=== PATIENT | male | born 1940 | race African-American/Black ===

== ENCOUNTER 2017-09-04 21:32 | Inpatient (IN) | payer MEDICARE, OTHER ==
[~2017-09-04] VITALS: Ht 177.8 cm; Wt 96.4 kg
[~2017-09-04 21:32] MED LIST: ASPI81TA82 PO; CARB6.5S5 EACH EAR; OMEGCAP21 PO; THIA100T PO; WALKER ROLLING; WALKER STANDARD
[2017-09-04 21:44] VITALS: BP 145/87; PULSE 99; RESP 16; TEMP 99.2; O2SAT 100
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
[2017-09-04] MEDS ORDERED: ONDANSETRON HCL 4 MG/2 ML VIAL IV PUSH ONE (22:00)
[2017-09-04] MEDS ORDERED: MORPHINE SULFATE 2 MG/ML INJ IV PUSH ONE (22:00)
[2017-09-04 22:05] LABS: AUTOMATED NEUTROPHIL # 5.9 TH/MM3 (1.8-7.7); BASOPHIL % 0.3 % (0.0-2.0); EOSINOPHIL % 0.2 % (0.0-4.0); HEMATOCRIT 38.3 % (39.0-51.0); HEMOGLOBIN 12.5 GM/DL (13.0-17.0); LYMPH % 8.3 % (9.0-44.0); LYMPHOCYTE # 0.6 TH/MM3 (1.0-4.8); MEAN CELL VOLUME 82.2 FL (80.0-100.0); MEAN CORPUSCULAR HEMOGLOBIN 26.9 PG (27.0-34.0); MEAN CORPUSCULAR HGB CONC 32.7 % (32.0-36.0); MEAN PLATELET VOLUME 8.3 FL (7.0-11.0); MONO % 8.8 % (0.0-8.0); MONOCYTE # 0.6 TH/MM3 (0-0.9); NEUT % 82.4 % (16.0-70.0); PLATELET COUNT 117 TH/MM3 (150-450); RED BLOOD COUNT 4.66 MIL/MM3 (4.50-5.90); RED CELL DISTRIBUTION WIDTH 14.8 % (11.6-17.2); WHITE BLOOD COUNT 7.2 TH/MM3 (4.0-11.0)
--- NOTE | 2017-09-04 22:08 | RADRPT ---
EXAM DATE/TIME: 09/04/2017 21:51 [facility] COMPARISON: No previous studies available for comparison. INDICATIONS : Evaluate chest for trauma, fell MEDICAL HISTORY : None. SURGICAL HISTORY : None. ENCOUNTER: Initial ACUITY: 1 day PAIN SCORE: 0/10 LOCATION: chest FINDINGS: A single view of the chest demonstrates the lungs to be symmetrically aerated without evidence of mas s, infiltrate or effusion. The cardiomediastinal contours are unremarkable. Osseous structures are intact. CONCLUSION: No acute disease. Huy Morales MD on September 04, 2017 at 22:06 Board Certified Radiologist. This report was verified electronically.
--- NOTE | 2017-09-04 22:11 | RADRPT ---
EXAM DATE/TIME: 09/04/2017 21:55 [facility] COMPARISON: No previous studies available for comparison. INDICATIONS : Left hip pain, fell MEDICAL HISTORY : None. SURGICAL HISTORY : None. ENCOUNTER: Initial ACUITY: 1 day PAIN SCORE: 9/10 LOCATION: Left Hip FINDINGS: Examination of the left hip was performed with AP Pelvis. A nondisplaced fracture is identified along the left intertrochanteric ridge. The femoral head remains well-seated within the acetabulum. There is mild degenerative spurring along the acetabular rim. CONCLUSION: Nondisplaced intertrochanteric fracture of the left hip. Huy Morales MD on September 04, 2017 at 22:08 Board Certified Radiologist. This report was verified electronically.
[2017-09-04 22:17] LABS: INTERNATIONAL NORMALIZED RATIO 1.1 RATIO; PROTHROMBIN TIME - PATIENT 10.7 SEC (9.8-11.6)
[2017-09-04 22:18] LABS: ALBUMIN 3.4 GM/DL (3.4-5.0); AST (GOT) 28 U/L (15-37); BICARBONATE 29.2 MEQ/L (21.0-32.0); BLOOD UREA NITROGEN 19 MG/DL (7-18); CALCIUM 8.6 MG/DL (8.5-10.1); CHLORIDE 98 MEQ/L (98-107); CREATININE 1.24 MG/DL (0.60-1.30); GLOMERULAR FILTRATION RATE 68 ML/MIN (>89); GLUCOSE,RANDOM 142 MG/DL (74-106); LIPASE 124 U/L (73-393); SODIUM (NA) 132 MEQ/L (136-145)
[2017-09-04 22:19] LABS: ALT (GPT) 12 U/L (12-78)
[2017-09-04 22:22] LABS: ALKALINE PHOSPHATASE 76 U/L (45-117); TOTAL BILIRUBIN ADULT 0.3 MG/DL (0.2-1.0); TOTAL PROTEIN 7.7 GM/DL (6.4-8.2); TROPONIN I LESS THAN 0.02 NG/ML (0.02-0.05)
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
[2017-09-04] MEDS: SODIUM CHLOR 0.9% 1000 ML INJ 1,000 ML IV SCH (22:27)
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
[2017-09-04 23:22] VITALS: O2SAT 100
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
[2017-09-04 23:58] LABS: BILIRUBIN, URINE NEG (NEG); BLOOD, URINE SMALL (NEG); GLUCOSE,URINE NEG (NEG); KETONE, URINE NEG (NEG); MUCUS URINE FEW /lpf (OCC); NITRITE,URINE NEG (NEG); URINE COLOR YELLOW (YELLW/STRAW); URINE LEUKOCYTE ESTERASE NEG (NEG)
[2017-09-05] VITALS (14 sets, daily range): BP systolic 100–160; BP diastolic 54–118; PULSE 77–124; RESP 16–20; TEMP 96.2–101.1; O2SAT 94–100
[2017-09-05] MEDS ORDERED: diphenhydrAMINE HCL 25 MG CAP PO PRN (00:45)
[2017-09-05] MEDS ORDERED: SODIUM CHLORIDE 0.9% FLUSH 10 ML FLUSH IV FLUSH PRN (00:45)
[2017-09-05] MEDS ORDERED: ONDANSETRON HCL 4 MG/2 ML VIAL IV PUSH PRN (00:45)
[2017-09-05] MEDS ORDERED: ACETAMINOPHEN 1000 MG/100 ML 65 ML IV PRN (00:45)
[2017-09-05] MEDS: MORPHINE SULFATE 2 MG/ML INJ IV PUSH PRN ×3 (02:11→16:20)
[2017-09-05 07:26] LABS: AUTOMATED NEUTROPHIL # 4.4 TH/MM3 (1.8-7.7); BASOPHIL % 0.4 % (0.0-2.0); EOSINOPHIL % 0.1 % (0.0-4.0); HEMATOCRIT 35.3 % (39.0-51.0); HEMOGLOBIN 11.6 GM/DL (13.0-17.0); LYMPH % 9.7 % (9.0-44.0); LYMPHOCYTE # 0.5 TH/MM3 (1.0-4.8); MEAN CELL VOLUME 81.8 FL (80.0-100.0); MEAN CORPUSCULAR HEMOGLOBIN 26.9 PG (27.0-34.0); MEAN CORPUSCULAR HGB CONC 32.9 % (32.0-36.0); MEAN PLATELET VOLUME 8.8 FL (7.0-11.0); MONO % 9.8 % (0.0-8.0); MONOCYTE # 0.5 TH/MM3 (0-0.9); PLATELET COUNT 107 TH/MM3 (150-450); RED BLOOD COUNT 4.32 MIL/MM3 (4.50-5.90); RED CELL DISTRIBUTION WIDTH 14.5 % (11.6-17.2); WHITE BLOOD COUNT 5.5 TH/MM3 (4.0-11.0)
[2017-09-05 07:48] LABS: BICARBONATE 29.6 MEQ/L (21.0-32.0); CALCIUM 8.4 MG/DL (8.5-10.1); CREATININE 1.03 MG/DL (0.60-1.30)
[2017-09-05] MEDS: SODIUM CHLORIDE 0.9% FLUSH 10 ML FLUSH IV FLUSH SCH ×2 (07:55→21:39)
[2017-09-05] MEDS ORDERED: ceFAZolin INJ 1,000 MG VIAL ONE (08:46)
[2017-09-05] MEDS ORDERED: VANCOMYCIN HCL 1000 MG VIAL ONE (08:46)
[2017-09-05] MEDS ORDERED: GENTAMICIN SULFATE 80 MG/2 ML VIAL ONE (08:46)
[2017-09-05] MEDS ORDERED: BUPIVACAINE/EPINEPHRINE 0.25% PF 10 ML VIAL ONE (08:46)
[2017-09-05] MEDS ORDERED: SODIUM CHLOR 0.9% 250 ML INJ 250 ML ONE (08:47)
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
--- NOTE | 2017-09-05 09:40 | PD.OP ---
cc: Joseph Lawson MD Operative Report Date of Surgery: Sep 05, 2017 Preoperative Diagnosis: Left hip intertrochanteric fracture Postoperative Diagnosis: Procedure: Left hip reduction and intramedullary nail fixation Anesthesia: Gen. Surgeon: Joseph Lawson Show Host Or Hostess(s): AUBRIE Ruvalcaba PA-C The surgical procedure was assisted by my physician assistant plant control operator. My P.A. presence was necessary throughout this case for the manipulation and positioning of the surgical extremity. My P.A. was assisting me throughout the duration of this procedure. The skill set of a physician assistant plant control operator was medically necessary to complete this procedure. During the surgical case the ophthalmic surgical assistant was working at the back table and the physician assistant plant control operator was directly assisting me. Operation and Findings: Implants used: [10]mm Synthes TFNA short troch nail Plan of activity: Weight-bear as tolerated Patient was seen and evaluated preoperatively. The patient has significant hip pain from intertrochanteric hip fracture. The risk and benefits of surgery were discussed in depth with the patient to include bleeding infection nonunion malunion and need for hip replacement painful hardware as well as medical competitions including but not stroke heart attack and . Informed consent was obtained. Operative site was marked. Patient was brought to the operating room and placed on fracture table. IV sedation was administered by anesthesiologist. Timeout procedure was performed. Hip and leg were prepped with alcohol followed by DuraPrep and draped in the usual sterile fashion. IV antibiotics were given prior to incision. Procedure began with reduction of fracture. Traction was applied. The leg was manipulated to achieve reduction. Excellent reduction was achieved. Fluoroscopy was used to confirm reduction. A three inch incision was made proximal to the trochanter. Subcutaneous tissue was dissected bluntly. Guidepin was placed at the tip of the trochanter and advanced into the femoral canal. Fluoroscopy confirmed appropriate guidepin placement. A opening reamer was placed over the guidepin. The Synthes TFNA nail was attached to the insertion handle. Nail was now placed through the tip of the trochanter into the femoral canal. Fluoroscopy confirmed appropriate nail placement. A second incision was made over the lateral thigh. Cannulas were placed through the insertion handle down to the femur. Guidepin was now placed through the femoral nail into the center of the femoral head. Fluoroscopy confirmed appropriate guidepin placement. Screw length was measured. Cannulated drill was placed over the guidepin. Appropriate length lag screw was now placed. Traction was released and compression was applied. The set screw was now tightened in dynamic mode. Using the insertion handle as a guide a distal interlocking screw was drilled and placed. Final fluoroscopy revealed well aligned fracture with well-placed hardware. Incision was closed with 3-0 Vicryl and uziel. Sterile dressings were applied. Patient was awakened and transferred to recovery room. Joseph Lawson MD Sep 05, 2017 09:40
[2017-09-05] MEDS ORDERED: ERGOCALCIFEROL (VIT D2) 50,000 UNIT CAP PO ONE (09:45)
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
[2017-09-05] MEDS ORDERED: ePHEDrine/NS 25 MG/5 ML SYRINGE IV ONE (12:00)
[2017-09-05] MEDS ORDERED: PROPOFOL 200 MG/20 ML AMP IV ONE (12:00)
[2017-09-05] MEDS ORDERED: LIDOCAINE HCL 1% PF 5 ML SYRINGE OTHER ONE (12:00)
[2017-09-05] MEDS ORDERED: PHENYLEPH/NS 1000 MCG/10 ML SYR IV ONE (12:00)
[2017-09-05] MEDS: SODIUM CHLOR 0.9% 1000 ML INJ 1,000 ML IV SCH (12:16)
[2017-09-05] MEDS: CALCIUM/VITAMIN D 250 MG/125 U TAB PO SCH ×2 (13:00→18:00)
--- NOTE | 2017-09-05 14:25 | RADRPT ---
EXAM DATE/TIME: 09/05/2017 09:35 [facility] COMPARISON: HIP LEFT (AP&LAT 2/3VWS) W AP PELVIS, September 04, 2017, 21:55. INDICATIONS : ORIF left hip fracture. MEDICAL HISTORY : Unobtainable. SURGICAL HISTORY : Unobtainable. ENCOUNTER: Subsequent ACUITY: 2 days PAIN SCORE: Non-responsive. LOCATION: Left hip FINDINGS: Intertrochanteric nail bridging right hip fracture. Alignment anatomic. CONCLUSION: Anatomic alignment. Jr Samson MD FACR on September 05, 2017 at 14:22 Board Certified Radiologist. This report was verified electronically.
--- NOTE | 2017-09-05 18:37 | EKG ---
Date Performed: 09/04/2017 Time Performed: 22:43:20 PTAGE: 76 years EKG: Sinus rhythm WITH OCCASIONAL SUPRAVENTRICULAR PREMATURE COMPLEXES MODERATE VOLTAGE CRITERIA FOR LVH, CONSIDER NOR MAL VARIANT BORDERLINE ECG PREVIOUS TRACING : 03/05/2008 16.45 Compared to prior tracing no significant change DOCTOR: Diana Medellin Interpretating Date/Time 09/05/2017 18:36:15
--- NOTE | 2017-09-05 19:11 | ECHRPT ---
Indication: SYNCOPE CONCLUSIONS Normal left ventricular size. Wall thickness is measured at the upper limits of normal. The left ventricular systolic function is normal with an estimated ejection fraction in the range of 55-60%. Trace mitral valve regurgitation. There is trace tricuspid valve regurgitation. The estimated pulmonary arterial pressure is 44.8 mmHg. Trivial pulmonary valve regurgitation. BP: / HR: Rhythm: Sinus MEASUREMENTS (Male / Female) Normal Values Technical Quality:Fair 2D ECHO LV Diastolic Diameter PLAX 3.4 cm 4.2 - 5.9 / 3.9 - 5.3 cm LV Systolic Diameter PLAX 2.6 cm IVS Diastolic Thickness 1.0 cm 0.6 - 1.0 / 0.6 - 0.9 cm LVPW Diastolic Thickness 1.0 cm 0.6 - 1.0 / 0.6 - 0.9 cm LV Relative Wall Thickness 0.6 RV Internal Dim ED PLAX 2.6 cm LVOT Diameter 1.7 cm Aortic Root Diameter 3.3 cm LA Systolic Diameter LX 2.1 cm 3.0 - 4.0 / 2.7 - 3.8 cm M-MODE AV Cusp Separation MM 1.8 cm DOPPLER AV Peak Velocity 132.0 cm/s AV Peak Gradient 7.0 mmHg AV Mean Gradient 4.0 mmHg AV Velocity Time Integral 18.7 cm LVOT Peak Velocity 99.3 cm/s LVOT Peak Gradient 3.9 mmHg LVOT Velocity Time Integral 14.1 cm AV Area Cont Eq vti 1.7 cm AV Area Cont Eq pk 1.7 cm Mitral E Point Velocity 41.2 cm/s Mitral A Point Velocity 78.5 cm/s Mitral E to A Ratio 0.5 LV E' Septal Velocity 6.5 cm/s Mitral E to LV E' Septal Ratio 6.3 TR Peak Velocity 295.0 cm/s TR Peak Gradient 34.8 mmHg Right Atrial Pressure 10.0 mmHg Pulmonary Artery Systolic Pressu 44.8 mmHg Right Ventricular Systolic Press 44.8 mmHg PV Peak Velocity 57.9 cm/s PV Peak Gradient 1.3 mmHg FINDINGS LEFT VENTRICLE Normal left ventricular size. Wall thickness is measured at the upper limits of normal. The left ventricular systolic function is normal with an estimated ejection fraction in the range of 55-60%. RIGHT VENTRICLE Normal right ventricular size and systolic function. LEFT ATRIUM The left atrial size is normal. RIGHT ATRIUM The right atrial size is normal. ATRIAL SEPTUM Normal atrial septal thickness without atrial level shunting by limited color doppler interrogation. AORTA The aortic root and proximal ascending aorta are normal in size on limited imaging. MITRAL VALVE Trace mitral valve regurgitation. AORTIC VALVE Trileaflet aortic valve. No aortic valve stenosis or regurgitation. TRICUSPID VALVE There is trace tricuspid valve regurgitation. The estimated pulmonary arterial pressure is 44.8 mmHg. PULMONARY VALVE Trivial pulmonary valve regurgitation. VESSELS The inferior vena cava is normal in size. PERICARDIUM No pericardial effusion. Santos Perkins MD, FACC (Electronically Signed) Final Date:05 September 2017 19:10
--- NOTE | 2017-09-05 20:33 | RADRPT ---
EXAM DATE/TIME: 09/05/2017 18:18 [facility] COMPARISON: No previous studies available for comparison. INDICATIONS : Syncope. MEDICAL HISTORY : CVA. Seizures. Ileus. Nocturia. Joint pain. Depression. Tobacco use. Anemia. SURGICAL HISTORY : Nephrectomy, left. Colostomy with reversal. Blood transfusions. ENCOUNTER: Initial ACUITY: 1 day PAIN SCORE: 0/10 LOCATION: Bilateral neck PEAK SYSTOLIC VELOCITIES (cm/sec): ICA/CCA RATIO: Right: 1.1 Left: 0.7 ICA: Right: 164 Left: 117 CCA: Right: 150 Left: 157 ECA: Right: 105 Left: 167 VERTEBRAL: Right: 19 antegrade Left: 130 antegrade Elevated flow velocities and ICA/CCA ratios have been found to correlate with increased degrees of vessel stenosis, calculated as percentage of diameter relative to a normal segment of distal ICA/CCA FINDINGS: RIGHT CAROTID: No significant stenosis is visualized. The waveforms are within normal limits. LEFT CAROTID: No significant stenosis is visualized. The waveforms are within normal limits. VERTEBRAL ARTERIES: Antegrade flow is seen in both vertebral arteries. MISCELLANEOUS: None. CONCLUSION: Mild atherosclerotic disease bilaterally without any obvious two-dimensional stenosis. Santos Aquino MD on September 05, 2017 at 20:31 Board Certified Radiologist. This report was verified electronically.
[2017-09-05] MEDS: ACETAMINOPHEN/HYDROcodone 325 MG/7.5 MG TAB PO PRN (21:40)
[2017-09-06] VITALS (9 sets, daily range): BP systolic 101–133; BP diastolic 56–71; PULSE 94–115; RESP 18–20; TEMP 98.3–100.3; O2SAT 93–96
[2017-09-06] MEDS: SODIUM CHLOR 0.9% 1000 ML INJ 1,000 ML IV SCH ×2 (00:40→15:21)
[2017-09-06] MEDS: ACETAMINOPHEN/HYDROcodone 325 MG/7.5 MG TAB PO PRN ×3 (02:33→16:56)
[2017-09-06 06:44] LABS: HEMATOCRIT 28.4 % (39.0-51.0); HEMOGLOBIN 9.4 GM/DL (13.0-17.0); MEAN CELL VOLUME 81.5 FL (80.0-100.0); MEAN CORPUSCULAR HEMOGLOBIN 27.1 PG (27.0-34.0); MEAN CORPUSCULAR HGB CONC 33.2 % (32.0-36.0); MEAN PLATELET VOLUME 8.8 FL (7.0-11.0); PLATELET COUNT 88 TH/MM3 (150-450); RED BLOOD COUNT 3.48 MIL/MM3 (4.50-5.90); RED CELL DISTRIBUTION WIDTH 14.6 % (11.6-17.2); WHITE BLOOD COUNT 5.1 TH/MM3 (4.0-11.0)
[2017-09-06 07:06] LABS: BICARBONATE 26.7 MEQ/L (21.0-32.0); CREATININE 1.15 MG/DL (0.60-1.30)
--- NOTE | 2017-09-06 07:16 | PD.ORT.PN ---
Subjective Subjective Remarks POD 1 s/p IMN left hip resting comfortably. no complaints. Objective Vitals Vital Signs Date Time Temp Pulse Resp B/P (MAP) Pulse Ox O2 Delivery O2 Flow Rate FiO2 09/06/17 04:00 99.2 09/06/17 00:09 106 09/06/17 00:00 100.0 115 18 101/56 (71) 95 09/05/17 20:03 95 09/05/17 20:00 101.1 104 18 100/54 (69) 96 09/05/17 16:00 101.0 124 20 134/71 (92) 95 09/05/17 13:00 152/71 (98) 09/05/17 12:00 98.2 97 16 153/118 (130) 95 09/05/17 11:33 94 21 09/05/17 10:30 90 16 153/74 (100) 98 Room Air 09/05/17 10:15 96 16 159/74 (102) 100 Room Air 09/05/17 09:58 98.5 86 16 130/66 (87) 100 09/05/17 08:00 99.0 94 18 139/64 (89) 96 I/O 09/05/17 09/05/17 09/05/17 09/06/17 09/06/17 09/06/17 07:00 15:00 23:00 07:00 15:00 23:00 Intake Total 1200 ml 480 ml 50 ml Output Total 800 ml 325 ml 600 ml 400 ml Balance -800 ml 875 ml -120 ml -350 ml Intake Oral 480 ml 50 ml IV Total 600 ml Other 600 ml Output Urine Total 800 ml 275 ml 600 ml 400 ml Estimated Blood Loss 50 ml # Bowel Movements 0 Result Diagram: 09/06/17 0530 09/06/17 0530 Objective Remarks LLE: dressings clean and dry. intact. NVI Assessment & Plan Assessment and Plan 1) Left Intertroch Fx s/p IMN - POD 1 -WBAT -daily dressing changes -DVT prophylaxis -CM for rehab placement -f/u with [facility] or [facility] in 2 weeks Jerome Smith/Wheel And Axle Inspector LYNETTE Sep 06, 2017 07:16
[2017-09-06] MEDS: CHOLECALCIFEROL (VIT D3) 5000 UNIT CAP PO SCH (08:12)
[2017-09-06] MEDS: CALCIUM/VITAMIN D 250 MG/125 U TAB PO SCH ×3 (08:12→17:21)
[2017-09-06] MEDS: SODIUM CHLORIDE 0.9% FLUSH 10 ML FLUSH IV FLUSH SCH ×2 (08:13→20:11)
[2017-09-06] MEDS: ENOXAPARIN SODIUM 30 MG/0.3 ML SYRINGE SQ SCH (08:29)
--- NOTE | 2017-09-06 08:42 | HHI.FPPN ---
Subjective Remarks Mr. Preciado states that he does not feel good, he was febrile overnight, and complains of pain in his left hip which he rates it 3/10. However, he is okay with his pain medication. (Renée Morejon MD R2) Objective Vitals Vital Signs Date Time Temp Pulse Resp B/P (MAP) Pulse Ox O2 Delivery O2 Flow Rate FiO2 09/06/17 04:00 99.2 09/06/17 00:09 106 09/06/17 00:00 100.0 115 18 101/56 (71) 95 09/05/17 20:03 95 09/05/17 20:00 101.1 104 18 100/54 (69) 96 09/05/17 16:00 101.0 124 20 134/71 (92) 95 09/05/17 13:00 152/71 (98) 09/05/17 12:00 98.2 97 16 153/118 (130) 95 09/05/17 11:33 94 21 09/05/17 10:30 90 16 153/74 (100) 98 Room Air 09/05/17 10:15 96 16 159/74 (102) 100 Room Air 09/05/17 09:58 98.5 86 16 130/66 (87) 100 I/O 09/05/17 09/05/17 09/05/17 09/06/17 09/06/17 09/06/17 07:00 15:00 23:00 07:00 15:00 23:00 Intake Total 1200 ml 480 ml 50 ml Output Total 800 ml 325 ml 600 ml 400 ml Balance -800 ml 875 ml -120 ml -350 ml Intake Oral 480 ml 50 ml IV Total 600 ml Other 600 ml Output Urine Total 800 ml 275 ml 600 ml 400 ml Estimated Blood Loss 50 ml # Bowel Movements 0 (Renée Morejon MD R2) Result Diagram: 09/06/17 0530 09/06/17 0530 Imaging Last Impressions Chest X-Ray 09/06/17 0000 Signed Impressions: Service Date/Time: Wednesday, September 06, 2017 09:23 - CONCLUSION: Minimal basilar parenchymal opacities. Cezar Romero MD Hip X-Ray 09/05/17 0000 Signed Impressions: Service Date/Time: Tuesday, September 05, 2017 09:35 - CONCLUSION: Anatomic alignment. Jr Samson MD FACR Carotid Artery Ultrasound 09/05/17 0000 Signed Impressions: Service Date/Time: Tuesday, September 05, 2017 18:18 - CONCLUSION: Mild atherosclerotic disease bilaterally without any obvious two-dimensional stenosis. Santos Aquino MD Head CT [id number] Signed Impressions: Service Date/Time: Monday, September 04, 2017 21:53 - CONCLUSION: 1. 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 2. No evidence of acute infarct, hemorrhage, mass or edema. 3. Aging brain 4. Loss and mild chronic white matter changes. Huy Morales MD Hip and Pelvis X-Ray 09/04/17 0000 Signed Impressions: Service Date/Time: Monday, September 04, 2017 21:55 - CONCLUSION: Nondisplaced intertrochanteric fracture of the left hip. Huy Morales MD Cervical Spine CT 09/04/17 0000 Signed Impressions: Service Date/Time: Monday, September 04, 2017 21:53 - CONCLUSION: 1. Degenerative disc disease and facet arthropathy. 2. No evidence of acute fracture or traumatic listhesis. Huy Morales MD Objective Remarks GENERAL: This is a well-nourished, well-developed patient, in no apparent distress after his hip surgery. Patient is resting comfortably in bed but is hesitant to move his left leg. Clean, dry, and intact bandage in place over left thigh SKIN: No rashes, ecchymoses or lesions. Cool and dry. HEAD: Atraumatic. Normocephalic. CARDIOVASCULAR: Tachycardic rate and rhythm without murmurs, gallops, or rubs. RESPIRATORY: Clear to auscultation. Breath sounds equal bilaterally. No wheezes , rales, or rhonchi. GASTROINTESTINAL: Abdomen soft, non-tender, nondistended. Vertical surgical scar noted along the mid abdomen. No hepato-splenomegaly, or palpable masses. No guarding. MUSCULOSKELETAL: Extremities without clubbing, cyanosis, or edema. NEUROLOGICAL: Awake and alert. Cranial nerves II through XII intact. Motor and sensory grossly within normal limits. Five out of 5 muscle strength in all muscle groups. Appropriately answers questions with yes, no, and simple answers (Eko,Renée U R2) A/P Assessment and Plan 76-year-old male presented to ED with acute left hip fracture. Postop day 1 status post reduction and internal fixation Seen and examined with Dr. Riggins. Discussed with Dr. Guajardo Discharge Planning Most likely to rehabilitation (Renée Morejon MD R2) Attending Attestation Patient seen and examined. Case reviewed and discussed with the resident team. Agree with plan of care as discussed with me and documented in the resident note. Mr Preciado is a poor historian and it is difficult for him to follow directions easily. he tries very hard but was not using his incentive spirometer well despite multiple times explaining it to him. he does not deep breathe or move much (Sonali Guajardo MD) Problem List: (1) Intertrochanteric fracture of left hip ICD Codes: S72.142A - Displaced intertrochanteric fracture of left femur, initial encounter for closed fracture Status: Acute Plan: Left hip x-ray on admission showed nondisplaced intertrochanteric fracture of the left hip Orthopedic help appreciated, POD1 Tx: [place] 7.5-325 one tab by mouth every 4 hours PRN pain 1-4, [place] 10-325 one tab by mouth every 4 hours PRN pain >=5, morphine 2 mg IV when necessary for breakthrough pain Ice/cold pack when necessary Lovenox 30 mg subcutaneous daily for DVT prophylaxis SCDs (2) Atelectasis of both lungs ICD Codes: J98.11 - Atelectasis Status: Acute Plan: -Febrile up to 101.1F overnight -Chest x-ray shows minimal basilar parenchymal opacities that are new -Suspect post op atelectasis -We will encourage incentive spirometry, nursing to assist -Out of bed to chair 3 times a day (3) Fall ICD Codes: W19.XXXA - Unspecified fall, initial encounter Plan: Family reporting 2 falls on the day of admission with subsequent left intertrochanteric fracture Patient is mentally handicapped and fairly mute so review of systems/pain assessment is unreliable Differential includes ACS versus CVA versus intoxication versus syncope Workup so far has been normal as follows: Troponin less than 0.02, CK-MB WNL, CPK WNL CT head showing findings consistent with old infarcts, no evidence of acute infarct, hemorrhage, mass or edema CT cervical spine showing no evidence of acute fracture Carotid ultrasound shows mild atherosclerotic disease bilaterally without any obvious two-dimensional stenosis, 2-D echo shows normal left ventricular systolic function with EF of 55-60% (4) FEN Plan: F: Oral fluids E: Will monitor and replace as needed N: Regular basic diet (Renée Morejon MD R2) Problem Qualifiers (1) Intertrochanteric fracture of left hip: Qualified Codes: S72.145A - Nondisplaced intertrochanteric fracture of left femur, initial encounter for closed fracture (2) Fall: Qualified Codes: W19.XXXA - Unspecified fall, initial encounter Renée Morejon MD R2 Sep 06, 2017 08:41 Sonali Guajardo MD Sep 08, 2017 13:01
--- NOTE | 2017-09-06 09:53 | RADRPT ---
EXAM DATE/TIME: 09/06/2017 09:23 [facility] COMPARISON: CHEST SINGLE AP, September 04, 2017, 21:51. INDICATIONS : Fever, short of breath, evaluate for atelectasis and pneumonia post hip surgery MEDICAL HISTORY : CVA, seizures, ileus, anemia SURGICAL HISTORY : Nephrectomy, left. colostomy and reversal ENCOUNTER: Subsequent ACUITY: 2 days PAIN SCORE: Non-responsive. LOCATION: Bilateral chest FINDINGS: There is minimal bibasilar parenchymal opacity which may be mild atelectasis. Cardiac contours and pu lmonary vascularity are stable and satisfactory. CONCLUSION: Minimal basilar parenchymal opacities. Cezar Romero MD on September 06, 2017 at 9:49 Board Certified Radiologist. This report was verified electronically.
[2017-09-06] MEDS ORDERED: INFLUENZA VIRUS VACCINE (QUADRIVALENT) 0.5 ML SYR IM ONE (10:00)
[2017-09-06] MEDS ORDERED: PNEUMOCOCCAL POLYVALENT INJ 25 MCG/0.5 ML SYR IM ONE (10:00)
[2017-09-06] MEDS: MORPHINE SULFATE 2 MG/ML INJ IV PUSH PRN (12:58)
[2017-09-07] VITALS: BP 122/58; PULSE 99; RESP 18; TEMP 100.6; O2SAT 96
[2017-09-07] MEDS: ACETAMINOPHEN/HYDROcodone 325 MG/7.5 MG TAB PO PRN (04:11)
[2017-09-07 04:30] VITALS: BP 163/76; PULSE 110; RESP 18; TEMP 100.9; O2SAT 93
[2017-09-07] MEDS: SODIUM CHLOR 0.9% 1000 ML INJ 1,000 ML IV SCH ×2 (06:10→22:14)
[2017-09-07] MEDS ORDERED: ACETAMINOPHEN 500 MG CPLT PO PRN (06:45)
[2017-09-07] MEDS ORDERED: ACETAMINOPHEN/HYDROcodone 325 MG/10 MG TAB PO PRN (06:45)
[2017-09-07] MEDS ORDERED: ACETAMINOPHEN/HYDROcodone 325 MG/7.5 MG TAB PO PRN (06:45)
--- NOTE | 2017-09-07 06:52 | PD.ORT.PN ---
Subjective Subjective Remarks Resting in bed comfortably with no new complaints Objective Vitals Vital Signs Date Time Temp Pulse Resp B/P (MAP) Pulse Ox O2 Delivery O2 Flow Rate FiO2 09/07/17 04:30 100.9 110 18 163/76 (105) 93 09/07/17 00:00 100.6 99 18 122/58 (79) 96 09/06/17 20:06 94 09/06/17 20:00 100.0 94 18 104/58 (73) 96 09/06/17 16:04 113 09/06/17 16:00 98.3 108 18 132/60 (84) 96 09/06/17 12:00 100.2 113 20 133/71 (91) 93 09/06/17 08:00 100.3 108 18 130/63 (85) 94 I/O 09/06/17 09/06/17 09/06/17 09/07/17 09/07/17 09/07/17 07:00 15:00 23:00 07:00 15:00 23:00 Intake Total 150 ml 2050 ml Output Total 400 ml 400 ml Balance -250 ml 2050 ml -400 ml Intake Oral 50 ml 420 ml IV Total 100 ml 1630 ml Output Urine Total 400 ml 400 ml # Bowel Movements 0 0 Result Diagram: 09/06/17 0530 09/06/17 0530 Objective Remarks Left lower extremity: Clean dry dressings intact. Mild swelling. Intact sensation distally with good capillary refills. Active dorsiflexion plantar flexion foot Assessment & Plan Assessment and Plan 1) Left Intertroch Fx s/p IMN - POD 2 -WBAT -daily dressing changes -DVT prophylaxis -CM for rehab placement Orthopedic clear for discharge to rehabilitation -f/u with [facility] or [facility] in 2 weeks Keron Marrero Jr. Sep 07, 2017 06:52
[2017-09-07] MEDS ORDERED: CALCTAB19 PO (06:55)
[2017-09-07] MEDS ORDERED: VITA500012 PO (06:55)
[2017-09-07] MEDS ORDERED: HYDR-3583 PO (06:55)
[2017-09-07] MEDS ORDERED: XARE10TA PO (06:55)
[2017-09-07] MEDS ORDERED: WALKER WHEELS/F1 MIS (06:55)
[2017-09-07 08:00] VITALS: BP 120/66; PULSE 105; RESP 18; TEMP 100.5; O2SAT 95
[2017-09-07] MEDS: ENOXAPARIN SODIUM 30 MG/0.3 ML SYRINGE SQ SCH (08:44)
[2017-09-07] MEDS: CALCIUM/VITAMIN D 250 MG/125 U TAB PO SCH ×3 (08:44→17:10)
[2017-09-07] MEDS: CHOLECALCIFEROL (VIT D3) 5000 UNIT CAP PO SCH (08:44)
[2017-09-07] MEDS: SODIUM CHLORIDE 0.9% FLUSH 10 ML FLUSH IV FLUSH SCH ×2 (08:47→22:14)
[2017-09-07 09:18] LABS: HEMATOCRIT 27.2 % (39.0-51.0); HEMOGLOBIN 9.2 GM/DL (13.0-17.0); MEAN CELL VOLUME 80.9 FL (80.0-100.0); MEAN CORPUSCULAR HEMOGLOBIN 27.3 PG (27.0-34.0); MEAN CORPUSCULAR HGB CONC 33.8 % (32.0-36.0); PLATELET COUNT 87 TH/MM3 (150-450); RED BLOOD COUNT 3.37 MIL/MM3 (4.50-5.90); RED CELL DISTRIBUTION WIDTH 14.7 % (11.6-17.2); WHITE BLOOD COUNT 4.6 TH/MM3 (4.0-11.0)
[2017-09-07 09:40] LABS: BICARBONATE 26.1 MEQ/L (21.0-32.0); CALCIUM 8.3 MG/DL (8.5-10.1); CREATININE 1.26 MG/DL (0.60-1.30)
--- NOTE | 2017-09-07 09:47 | HHI.FPPN ---
Subjective Remarks Pt seen and examined this morning. Overnight pt with elevated temperature with Tmax of 100.9. Pulse ox 93-96% on room air. Pt is a poor historian and has difficulty expressing himself. He answers questions with yes or no answers. (Mirela Yoon MD R3) Objective Vitals Vital Signs Date Time Temp Pulse Resp B/P (MAP) Pulse Ox O2 Delivery O2 Flow Rate FiO2 09/07/17 08:00 100.5 105 18 120/66 (84) 95 09/07/17 04:30 100.9 110 18 163/76 (105) 93 09/07/17 00:00 100.6 99 18 122/58 (79) 96 09/06/17 20:06 94 09/06/17 20:00 100.0 94 18 104/58 (73) 96 09/06/17 16:04 113 09/06/17 16:00 98.3 108 18 132/60 (84) 96 09/06/17 12:00 100.2 113 20 133/71 (91) 93 I/O 09/06/17 09/06/17 09/06/17 09/07/17 09/07/17 09/07/17 07:00 15:00 23:00 07:00 15:00 23:00 Intake Total 150 ml 2050 ml Output Total 400 ml 400 ml Balance -250 ml 2050 ml -400 ml Intake Oral 50 ml 420 ml IV Total 100 ml 1630 ml Output Urine Total 400 ml 400 ml # Bowel Movements 0 0 (Mirela Yoon MD R3) Result Diagram: 09/07/17 0712 09/07/17 0712 Objective Remarks GENERAL: This is a well-nourished, well-developed patient, in no apparent distress after his hip surgery. Patient is resting comfortably in bed. Clean, dry, and intact bandage in place over left thigh SKIN: Cool and dry. HEAD: Atraumatic. Normocephalic. CARDIOVASCULAR: Tachycardic rate and rhythm without murmurs, gallops, or rubs. RESPIRATORY: Pt not taking deep breaths. Some course breath sounds in lower lung montemayor. No wheezing. No accessory muscle use. GASTROINTESTINAL: Abdomen soft, non-tender, nondistended. Vertical surgical scar noted along the mid abdomen. No hepato-splenomegaly, or palpable masses. No guarding. MUSCULOSKELETAL: Extremities without clubbing, cyanosis, or edema. NEUROLOGICAL: Awake and alert. Cranial nerves II through XII intact. Motor and sensory grossly within normal limits. Five out of 5 muscle strength in all muscle groups. Appropriately answers questions with yes, no, and simple answers (Mirela Yoon MD R3) A/P Assessment and Plan 76-year-old male presented to ED with acute left hip fracture. Postop day 1 status post reduction and internal fixation Seen and examined with Dr. Riggins. Discussed with Dr. Guajardo Discharge Planning Anticipate discharge later today to [place] [facility]. (Mirela Yoon MD R3) Attending Attestation Patient seen and examined. Case reviewed and discussed with the resident team. Agree with plan of care as discussed with me and documented in the resident note. he is a set up to have atelectasis as he can't follow directions well to deep breathe. agree with acapella. (Sonali Guajardo MD) Problem List: (1) Intertrochanteric fracture of left hip ICD Codes: S72.142A - Displaced intertrochanteric fracture of left femur, initial encounter for closed fracture Status: Acute Plan: Left hip x-ray on admission showed nondisplaced intertrochanteric fracture of the left hip Orthopedic help appreciated, POD1 Tx: [place] 7.5-325 one tab by mouth every 4 hours PRN pain 1-4, [place] 10-325 one tab by mouth every 4 hours PRN pain >=5, morphine 2 mg IV when necessary for breakthrough pain Ice/cold pack when necessary Lovenox 30 mg subcutaneous daily for DVT prophylaxis SCDs (2) Atelectasis of both lungs ICD Codes: J98.11 - Atelectasis Status: Acute Plan: -Tmax of 100.9 overnight -Pt with elevated heart rate, pulse Ox 93-96% -Will check D-dimer and Lactic acid to rule out PE and acute infection -Chest x-ray from 09/06/17 shows minimal basilar parenchymal opacities -Suspect post op atelectasis -We will encourage incentive spirometry, acapella, nursing to assist -Pt to get out of bed to chair (3) Fall ICD Codes: W19.XXXA - Unspecified fall, initial encounter Plan: Family reporting 2 falls on the day of admission with subsequent left intertrochanteric fracture Patient is mentally handicapped and fairly mute so review of systems/pain assessment is unreliable Workup so far has been normal as follows: Troponin less than 0.02, CK-MB WNL, CPK WNL CT head showing findings consistent with old infarcts, no evidence of acute infarct, hemorrhage, mass or edema CT cervical spine showing no evidence of acute fracture Carotid ultrasound shows mild atherosclerotic disease bilaterally without any obvious two-dimensional stenosis, 2-D echo shows normal left ventricular systolic function with EF of 55-60% (4) FEN Plan: F: Oral fluids E: Will monitor and replace as needed N: Regular basic diet (Mirela Yoon MD R3) Problem Qualifiers (1) Intertrochanteric fracture of left hip: Qualified Codes: S72.145A - Nondisplaced intertrochanteric fracture of left femur, initial encounter for closed fracture (2) Fall: Qualified Codes: W19.XXXA - Unspecified fall, initial encounter Mirela Yoon MD R3 Sep 07, 2017 09:47 Sonali Guajardo MD Sep 08, 2017 13:03
[2017-09-07] MEDS: MORPHINE SULFATE 2 MG/ML INJ IV PUSH PRN (11:03)
[2017-09-07 12:00] VITALS: BP 97/58; PULSE 109; RESP 17; TEMP 95.9; O2SAT 94
--- NOTE | 2017-09-07 13:13 | HHI.DCPOC ---
Discharge Care Plan Diagnosis: (1) Intertrochanteric fracture of left hip (2) Atelectasis of both lungs (3) Fall (4) FEN Goals to Promote Your Health * To prevent worsening of your condition and complications * To maintain your health at the optimal level Directions to Meet Your Goals Take your medications as prescribed Follow your dietary instruction Follow activity as directed Keep your appointments as scheduled Take your immunizations and boosters as scheduled If your symptoms worsen call your PCP, if no PCP go to Urgent Care Center or Emergency Room Smoking is Dangerous to Your Health. Avoid second hand smoke Call the 24-hour hour crisis hotline for domestic abuse at Mirela Yoon MD R3 Sep 07, 2017 13:13
[2017-09-07 16:00] VITALS: BP 109/53; PULSE 106; RESP 19; TEMP 99.2; O2SAT 94
[2017-09-07] MEDS ORDERED: IOHEXOL 350 MG/ML 10 ML VIAL (for RAD DIAG) IVCONTRAST ONE (17:53)
--- NOTE | 2017-09-07 18:02 | RADRPT ---
EXAM DATE/TIME: 09/07/2017 17:29 [facility] COMPARISON: No previous studies available for comparison. INDICATIONS : Shortness of breath. IV CONTRAST: 60 cc Omnipaque 350 (iohexol) IV RADIATION DOSE: 10.98 CTDIvol (mGy) MEDICAL HISTORY : Seizures. SURGICAL HISTORY : None. ENCOUNTER: Initial ACUITY: 1 day PAIN SCALE: 3/10 LOCATION: Bilateral chest TECHNIQUE: Volumetric scanning of the chest was performed using a pulmonary embolism protocol MIP images were re constructed. Using automated exposure control and adjustment of the mA and/or kV according to patien t size, radiation dose was kept as low as reasonably achievable to obtain optimal diagnostic quality images. DICOM format image data is available electronically for review and comparison. Follow-up recommendations for detected pulmonary nodules are based at a minimum on nodule size and pa tient risk factors according to Fleischner Society Guidelines. FINDINGS: PULMONARY ARTERIES: No filling defects are seen in the pulmonary arteries through the segmental level. Main pulmonary art yomi slightly prominent measuring up to 3.2 cm. LUNGS: Patchy groundglass opacities and airspace consolidation/volume loss at the lung bases bilaterally. PLEURAE: Trace bilateral pleural effusions. MEDIASTINUM: Mild coronary calcifications. Heart is grossly unremarkable. No significant mediastinal adenopathy. MUSCULOSKELETAL: Thoracic kyphosis with multilevel degenerative spondylosis. MISCELLANEOUS: The visualized upper abdominal organs demonstrate no acute abnormality. CONCLUSION: 1. No CT evidence for pulmonary artery embolism as questioned. 2. Slightly prominent main pulmonary artery which may reflect some degree of pulmonary hypertension. 3. Mild bibasilar airspace consolidation/volume loss and associated trace bilateral pleural effusions . 4. Mild coronary artery calcifications. Jose Alfredo Porras MD on September 07, 2017 at 17:55 Board Certified Radiologist. This report was verified electronically.
[2017-09-07 20:00] VITALS: BP 122/58; PULSE 108; PULSE 99; RESP 18; TEMP 98.9; O2SAT 96
[2017-09-08] VITALS: BP 125/62; PULSE 107; PULSE 89; RESP 18; TEMP 98.9; O2SAT 95
[2017-09-08 03:28] VITALS: PULSE 153
[2017-09-08 04:00] VITALS: BP 120/63; PULSE 87; RESP 17; TEMP 97.6; O2SAT 92
[2017-09-08] MEDS ORDERED: MAGNESIUM HYDROXIDE SUSP 30 ML CUP PO PRN (07:15)
[2017-09-08] MEDS ORDERED: LACTULOSE SYRUP 20 GM/30 ML CUP PO PRN (07:15)
[2017-09-08] MEDS ORDERED: SENNOSIDES 8.6 MG TAB PO PRN (07:15)
[2017-09-08] MEDS ORDERED: BISACODYL 10 MG SUPP RECTAL PRN (07:15)
[2017-09-08 08:00] VITALS: BP 130/68; PULSE 113; RESP 17; TEMP 100.5; O2SAT 91
[2017-09-08 08:45] LABS: AUTOMATED NEUTROPHIL # 3.4 TH/MM3 (1.8-7.7); BASOPHIL % 0.6 % (0.0-2.0); EOSINOPHIL % 0.7 % (0.0-4.0); HEMATOCRIT 28.2 % (39.0-51.0); HEMOGLOBIN 9.3 GM/DL (13.0-17.0); LYMPH % 9.2 % (9.0-44.0); LYMPHOCYTE # 0.4 TH/MM3 (1.0-4.8); MEAN CELL VOLUME 81.2 FL (80.0-100.0); MEAN CORPUSCULAR HEMOGLOBIN 26.7 PG (27.0-34.0); MEAN CORPUSCULAR HGB CONC 32.8 % (32.0-36.0); MEAN PLATELET VOLUME 8.5 FL (7.0-11.0); MONO % 13.1 % (0.0-8.0); MONOCYTE # 0.6 TH/MM3 (0-0.9); NEUT % 76.4 % (16.0-70.0); PLATELET COUNT 99 TH/MM3 (150-450); RED BLOOD COUNT 3.47 MIL/MM3 (4.50-5.90); RED CELL DISTRIBUTION WIDTH 14.3 % (11.6-17.2); WHITE BLOOD COUNT 4.5 TH/MM3 (4.0-11.0)
[2017-09-08] MEDS ORDERED: DOCUSATE SODIUM 50 MG/SENNA 8.6 MG TAB PO SCH (09:00)
[2017-09-08 09:12] LABS: ALBUMIN 2.1 GM/DL (3.4-5.0); AST (GOT) 30 U/L (15-37); BICARBONATE 27.2 MEQ/L (21.0-32.0); BLOOD UREA NITROGEN 18 MG/DL (7-18); CALCIUM 8.4 MG/DL (8.5-10.1); CHLORIDE 103 MEQ/L (98-107); CREATININE 1.15 MG/DL (0.60-1.30); GLOMERULAR FILTRATION RATE 75 ML/MIN (>89); GLUCOSE,RANDOM 105 MG/DL (74-106); SODIUM (NA) 137 MEQ/L (136-145)
[2017-09-08 09:14] LABS: ALT (GPT) 8 U/L (12-78)
[2017-09-08 09:15] LABS: ALKALINE PHOSPHATASE 49 U/L (45-117); CALCIUM-PROTEIN CORRECTED 9.1 MG/DL (8.5-10.1); TOTAL BILIRUBIN ADULT 0.7 MG/DL (0.2-1.0)
[2017-09-08] MEDS: SODIUM CHLOR 0.9% 1000 ML INJ 1,000 ML IV SCH (09:35)
--- NOTE | 2017-09-08 09:53 | HHI.FPPN ---
Subjective Remarks Mr Preciado had no acute events overnight. He still feels like he has pain in his right chest and left hip, but he appears more comfortable today. He is not coughing as much. He denies CP, SOB, N/V/D and DVT pain. [facility]. (Victoriano Riggins MD R1) Objective Vitals Vital Signs Date Time Temp Pulse Resp B/P (MAP) Pulse Ox O2 Delivery O2 Flow Rate FiO2 09/08/17 08:00 100.5 113 17 130/68 (88) 91 09/08/17 04:00 97.6 87 17 120/63 (82) 92 09/08/17 03:28 153 09/08/17 00:00 107 09/08/17 00:00 98.9 89 18 125/62 (83) 95 09/07/17 20:00 98.9 99 18 122/58 (79) 96 09/07/17 20:00 108 09/07/17 16:00 99.2 106 19 109/53 (71) 94 09/07/17 12:00 95.9 109 17 97/58 (71) 94 09/07/17 10:00 18 I/O 09/07/17 09/07/17 09/07/17 09/08/17 09/08/17 09/08/17 06:59 14:59 22:59 06:59 14:59 22:59 Intake Total 290 ml 120 ml Output Total 400 ml Balance -400 ml 290 ml 120 ml Intake Oral 290 ml 120 ml Output Urine Total 400 ml # Voids 6 2 # Bowel Movements 0 (Victoriano Riggins MD R1) Result Diagram: 09/08/17 0759 09/08/17 0759 Objective Remarks GENERAL: This is a well-nourished, well-developed patient, in no apparent distress after his hip surgery. Patient is resting comfortably in bed. Clean, dry, and intact bandage in place over left thigh SKIN: Cool and dry. No lesions or rash. HEAD: Atraumatic. Normocephalic. CARDIOVASCULAR: Tachycardic rate and rhythm without murmurs, gallops, or rubs. RESPIRATORY: Pt not taking deep breaths. Some course breath sounds in lower lung montemayor. No wheezing. No accessory muscle use. GASTROINTESTINAL: Abdomen soft, non-tender, nondistended. Vertical surgical scar noted along the mid abdomen. No hepato-splenomegaly, or palpable masses. No guarding. MUSCULOSKELETAL: Extremities without clubbing, cyanosis, or edema. Has global muscle atrophy in the chest, arms, head, hands and legs. NEUROLOGICAL: Awake and alert. Cranial nerves II through XII intact. Motor and sensory grossly within normal limits. Five out of 5 muscle strength in all muscle groups. Appropriately answers questions with yes, no, and simple answers Medications and IVs Current Medications Medications (Trade) Dose Ordered Sig/Candida Route Start Time Stop Time Status Last Admin (NS Flush) 2 ml UNSCH PRN IV FLUSH 09/05/17 00:45 09/07/17 11:04 (NS Flush) 2 ml BID IV FLUSH 09/05/17 09:00 09/07/17 22:14 (Morphine Inj) 2 mg Q4H PRN IV PUSH 09/05/17 00:45 09/07/17 11:03 (Zofran Inj) 4 mg Q6H PRN IV PUSH 09/05/17 00:45 (Benadryl) 25 mg Q4H PRN PO 09/05/17 00:45 (Lovenox Inj) 30 mg Q24H SQ 09/06/17 09:00 09/08/17 11:19 (Oscal-D 250-125) 250 mg TID PO 09/05/17 13:00 09/08/17 11:19 (Vitamin D3) 5,000 units DAILY PO 09/06/17 09:00 09/08/17 11:19 ([place] 7.5-325 Mg) 1 tab Q4HR PRN PO 09/07/17 06:45 ([place] 10-325 Mg) 1 tab Q4H PRN PO 09/07/17 06:45 09/07/17 08:57 (Tylenol) 500 mg Q6H PRN PO 09/07/17 06:45 09/08/17 11:20 Sodium Chloride 1,000 ml @ 75 mls/hr [id number] IV 09/07/17 20:15 09/07/17 22:14 (Anu-Colace) 1 tab BID PO 09/08/17 09:00 09/08/17 11:19 (Milk Of Magnesia Liq) 30 ml Q12H PRN PO 09/08/17 07:15 (Senokot) 17.2 mg Q12H PRN PO 09/08/17 07:15 (Dulcolax Supp) 10 mg DAILY PRN RECTAL 09/08/17 07:15 (Lactulose Liq) 30 ml DAILY PRN PO 09/08/17 07:15 (Victoriano Riggins MD R1) Urinary Catheter: Yes (Victoriano Riggins MD R1) A/P Assessment and Plan 76-year-old male presented to ED with acute left hip fracture. Postop day 3 status post reduction and internal fixation Seen and examined with Drs. Guajardo and Darleen Discharge Planning Anticipate discharge later today to [facility]. (Victoriano Riggins MD R1) Attending Attestation Patient seen and examined. Case reviewed and discussed with the resident team. Agree with plan of care as discussed with me and documented in the resident note. the best thing for him is to be mobilized. he is weight when the nurses move him but was walking and doing everything independently prior to his fracture (Sonali Guajardo MD) Problem List: (1) Intertrochanteric fracture of left hip ICD Codes: S72.142A - Displaced intertrochanteric fracture of left femur, initial encounter for closed fracture Status: Acute Plan: Left hip x-ray on admission showed nondisplaced intertrochanteric fracture of the left hip Orthopedic help appreciated, POD3 Tx: [place] 7.5-325 one tab by mouth every 4 hours PRN pain 1-4, [place] 10-325 one tab by mouth every 4 hours PRN pain >=5, morphine 2 mg IV when necessary for breakthrough pain Ice/cold pack when necessary Lovenox 30 mg subcutaneous daily for DVT prophylaxis SCDs DC to [facility] 09/08 with PT/OT, Xarelto 10mg for anticoagulation, [place] pain control, LISA rodríguez (2) Atelectasis of both lungs ICD Codes: J98.11 - Atelectasis Status: Acute Plan: -Temp instability with low 95.9 last night -Pt with elevated heart rate, pulse Ox 92-96% -D-dimer elevated to 5.32; however, CTA negative for PE--confirmed bibasilar airspace consolidations and likely atelectasis -Chest x-ray from 09/06/17 shows minimal basilar parenchymal opacities -Suspect post op atelectasis -We will encourage incentive spirometry, acapella qid, nursing to assist -Pt to get out of bed to chair Plan for DC to [facility] 09/08 with chest physiotherapy/acapella QID as pt doesn't appear to have cognitive capacity to use IS Will require PT to improve lung volumes (3) Fall ICD Codes: W19.XXXA - Unspecified fall, initial encounter Plan: Family reporting 2 falls on the day of admission with subsequent left intertrochanteric fracture Patient is mentally handicapped and fairly mute so review of systems/pain assessment is unreliable Workup so far has been normal as follows: Troponin less than 0.02, CK-MB WNL, CPK WNL CT head showing findings consistent with old infarcts, no evidence of acute infarct, hemorrhage, mass or edema CT cervical spine showing no evidence of acute fracture Carotid ultrasound shows mild atherosclerotic disease bilaterally without any obvious two-dimensional stenosis, 2-D echo shows normal left ventricular systolic function with EF of 55-60% (4) FEN Plan: F: Oral fluids E: Will monitor and replace as needed N: Regular basic diet (Victoriano Riggins MD R1) Problem Qualifiers (1) Intertrochanteric fracture of left hip: Qualified Codes: S72.145A - Nondisplaced intertrochanteric fracture of left femur, initial encounter for closed fracture (2) Fall: Qualified Codes: W19.XXXA - Unspecified fall, initial encounter Victoriano Riggins MD R1 Sep 08, 2017 09:53 Sonali Guajardo MD Sep 08, 2017 13:04
[2017-09-08 10:10] LABS: OVALOCYTES 1+ (NORMAL)
[2017-09-08] MEDS: ENOXAPARIN SODIUM 30 MG/0.3 ML SYRINGE SQ SCH (11:19)
[2017-09-08] MEDS: CALCIUM/VITAMIN D 250 MG/125 U TAB PO SCH ×2 (11:19→12:30)
[2017-09-08] MEDS: CHOLECALCIFEROL (VIT D3) 5000 UNIT CAP PO SCH (11:19)
[2017-09-08 12:00] VITALS: BP 113/65; PULSE 104; RESP 18; TEMP 100.9; O2SAT 93
[2017-09-08] MEDS: SODIUM CHLORIDE 0.9% FLUSH 10 ML FLUSH IV FLUSH SCH (12:29)
--- NOTE | 2017-09-08 21:55 | HHI.DS ---
Discharge Summary Admission Date Sep 04, 2017 at 23:15 Discharge Date: Sep 08, 2017 Admitting Diagnosis Left hip intertrochanteric fx (1) Displaced fracture of left femur Diagnosis: Principal ICD Codes: S72.92XA - Unspecified fracture of left femur, initial encounter for closed fracture Status: Acute (2) Fall Diagnosis: Principal ICD Codes: W19.XXXA - Unspecified fall, initial encounter Status: Acute (3) Atelectasis of both lungs Diagnosis: Secondary ICD Codes: J98.11 - Atelectasis Status: Acute Procedures 09/05/17: Left hip reduction and intramedullary nail fixation 09/05/17: 2D Echocardiogram CONCLUSIONS Normal left ventricular size. Wall thickness is measured at the upper limits of normal. The left ventricular systolic function is normal with an estimated ejection fraction in the range of 55-60%. Trace mitral valve regurgitation. There is trace tricuspid valve regurgitation. The estimated pulmonary arterial pressure is 44.8 mmHg. Trivial pulmonary valve regurgitation. Brief History Mr. Preciado is a 76 yo somewhat mute/mentally disabled gentleman who presented to the ED with a chief complaint of pain in his left hip. Patient's sister and niece are present who provide history. Family states that he was in his normal state of health until earlier on the day of admission when he had 2 unwitnessed falls. The first fall occurred inside the house and was believed to have tripped over an object in the house. Following that he walked outside to get the mail and had another fall. Following these falls he initially did not complain of any pain or injuries. Family states that he is normally clumsy at baseline and did not complain of any dizziness, chest pain, shortness of breath. Later that evening when the family was giving the patient a shower he began complaining of pain in his left hip. The family believes the pain to be excruciating, and he subsequently had a 3-4 minute episode where he was hard to arouse/was not responding appropriately to questions. After that episode he returned to baseline but continued to complain of the left hip pain. At that time family called EMS. No complaints of fever/chills, headache, cough, sore throat. CBC/BMP: 09/08/17 0759 09/08/17 0759 Significant Findings Laboratory Tests Test 09/06/17 05:30 09/07/17 07:12 09/07/17 14:13 09/08/17 07:59 Red Blood Count 3.48 MIL/MM3 (4.50-5.90) 3.37 MIL/MM3 (4.50-5.90) 3.47 MIL/MM3 (4.50-5.90) Hemoglobin 9.4 GM/DL (13.0-17.0) 9.2 GM/DL (13.0-17.0) 9.3 GM/DL (13.0-17.0) Hematocrit 28.4 % (39.0-51.0) 27.2 % (39.0-51.0) 28.2 % (39.0-51.0) Platelet Count 88 TH/MM3 (150-450) 87 TH/MM3 (150-450) 99 TH/MM3 (150-450) Calcium Level 8.0 MG/DL (8.5-10.1) 8.3 MG/DL (8.5-10.1) 8.4 MG/DL (8.5-10.1) Estimat Glomerular Filtration Rate 75 ML/MIN (>89) 67 ML/MIN (>89) 75 ML/MIN (>89) Sodium Level 135 MEQ/L (136-145) D-Dimer Quantitative (PE/DVT) 5.32 MG/L FEU (0.00-0.50) Mean Corpuscular Hemoglobin 26.7 PG (27.0-34.0) Neutrophils (%) (Auto) 76.4 % (16.0-70.0) Monocytes (%) (Auto) 13.1 % (0.0-8.0) Lymphocytes # (Auto) 0.4 TH/MM3 (1.0-4.8) Platelet Estimate LOW (NORMAL) Ovalocytes 1+ (NORMAL) Total Protein 6.0 GM/DL (6.4-8.2) Albumin 2.1 GM/DL (3.4-5.0) Alanine Aminotransferase (ALT/SGPT) 8 U/L (12-78) Imaging Last Impressions CT Angiography 09/07/17 0000 Signed Impressions: Service Date/Time: Thursday, September 07, 2017 17:29 - CONCLUSION: 1. No CT evidence for pulmonary artery embolism as questioned. 2. Slightly prominent main pulmonary artery which may reflect some degree of pulmonary hypertension. 3. Mild bibasilar airspace consolidation/volume loss and associated trace bilateral pleural effusions. 4. Mild coronary artery calcifications. Jose Alfredo Porras MD Chest X-Ray 09/06/17 0000 Signed Impressions: Service Date/Time: Wednesday, September 06, 2017 09:23 - CONCLUSION: Minimal basilar parenchymal opacities. Cezar Romero MD Hip X-Ray 09/05/17 0000 Signed Impressions: Service Date/Time: Tuesday, September 05, 2017 09:35 - CONCLUSION: Anatomic alignment. Jr Samson MD FACR Carotid Artery Ultrasound 09/05/17 0000 Signed Impressions: Service Date/Time: Tuesday, September 05, 2017 18:18 - CONCLUSION: Mild atherosclerotic disease bilaterally without any obvious two-dimensional stenosis. Santos Aquino MD Head CT [id number] Signed Impressions: Service Date/Time: Monday, September 04, 2017 21:53 - CONCLUSION: 1. 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 2. No evidence of acute infarct, hemorrhage, mass or edema. 3. Aging brain 4. Loss and mild chronic white matter changes. Huy Morales MD Hip and Pelvis X-Ray 09/04/17 0000 Signed Impressions: Service Date/Time: Monday, September 04, 2017 21:55 - CONCLUSION: Nondisplaced intertrochanteric fracture of the left hip. Huy Morales MD Cervical Spine CT 09/04/17 0000 Signed Impressions: Service Date/Time: Monday, September 04, 2017 21:53 - CONCLUSION: 1. Degenerative disc disease and facet arthropathy. 2. No evidence of acute fracture or traumatic listhesis. Huy Morales MD PE at Discharge GENERAL: This is a well-nourished, well-developed patient, in no apparent distress after his hip surgery. Patient is resting comfortably in bed. Clean, dry, and intact bandage in place over left thigh SKIN: Cool and dry. No lesions or rash. HEAD: Atraumatic. Normocephalic. CARDIOVASCULAR: Tachycardic rate and rhythm without murmurs, gallops, or rubs. RESPIRATORY: Pt not taking deep breaths. Some course breath sounds in lower lung montemayor. No wheezing. No accessory muscle use. GASTROINTESTINAL: Abdomen soft, non-tender, nondistended. Vertical surgical scar noted along the mid abdomen. No hepato-splenomegaly, or palpable masses. No guarding. MUSCULOSKELETAL: Extremities without clubbing, cyanosis, or edema. Has global muscle atrophy in the chest, arms, head, hands and legs. NEUROLOGICAL: Awake and alert. Cranial nerves II through XII intact. Motor and sensory grossly within normal limits. Five out of 5 muscle strength in all muscle groups. Appropriately answers questions with yes, no, and simple answers Hospital Course Mr Preciado was admitted through the ED on 09/04/17 after two falls and with significant left hip pain. A workup was undertaken both to evalaute the cause of his falls as well as the hip pain. Left hip xray showed a nondisplaced intertrochanteric fracture and orthopedics was consulted. Head CT showed encephalomalacia and atrophic changes of age, but no acute CVA process. Cardiology was consulted to investigate a cardiac cause of the falls and the initial ECG showed normal sinus rhythm with occasional supraventricular premature complexes which were unchanged from a previous study. Echo study also indicated no acute process to explain the falls. Carotid artery US showed mild atherosclerotic plaque in the carotid arteries, but no occlusion. Dr Castellano took the pt to the OR for surgery on 09/05/17 to fix the hip fracture. Following surgery the patient has developed bibasilar atelectasis poor compliance with incentive spirometry. On 09/07 the pt was complaining about bibasilar pain and a d-dimer resr was ordered for concern about possible pulmonary embolism. D-Dimer was elevated to 5.32 and STAT CTA chest was ordered and came back negative for PE, but further confirmed atelectasis. The patient lacks the ability to understand how to use the spirometer, and acapella/chest physiotherapy was undertaken to improve lung volumes. By discharge we showed some minimal improvement. On discharge his pain was better controlled, he was taking PO, voiding and stooling. He had been assisted to chair by PT, but we believe rehab will improve his daily functioning and mobility. Pt Condition on Discharge: Stable Discharge Disposition: Rehab Inpatient Discharge Instructions DIET: Follow Instructions for: As Tolerated, No Restrictions Activities you can perform: Weight Bearing as Les Activities to avoid: Contact Sports, Lifting/Bending, Weight Bearing, Prolonged Standing, Strenuous Activity Follow up Referrals: Orthopedics - 2 Weeks @ [facility] with Joseph Castellano MD Orthopedics - 2 Weeks @ [facility] with Joseph Castellano MD New Medications: Calcium Carbonate-Vitamin D (Calcium 600+D 200) 600-200 Mg-Unit Tab 1 TAB PO BID for Nutritional Supplement, #90 TAB 0 Refills Ergocalciferol (Ergocalciferol) 50,000 Unit Cap 27250 UNITS PO Q7D for Nutritional Supplement, #8 CAP Hydrocodone-Acetaminophen (Hydrocodone-Acetaminophen) 10-325 mg Tab 1 TAB PO Q4H PRN for PAIN, #60 TAB 0 Refills Rivaroxaban (Xarelto) 10 Mg Tab 10 MG PO DAILY for Blood Clot Prevention, #14 TAB 0 Refills Walker with Front Wheels (Walker with Front Wheels) 1 Mis Mis EA .ROUTE DIRECTED, #1 0 Refills Victoriano Riggins MD R1 Sep 08, 2017 21:55
== END 2017-09-08 13:10 | DRG 481 ==
LOC: NEPE 21:32 → NEDA 23:15 → N07A 09-05 01:48 → N07B 09-05 01:48
PROVIDERS: ADMIT Family Medicine; ATTEND Family Medicine
PROC: 0QS706Z Reposition Left Upper Femur with Intramedullary Internal Fixation Device, Open Approach (ICD-10-PCS; principal; 2017-09-05 08:57)
DX: S72.145A Nondisplaced intertrochanteric fracture of left femur, initial encounter for closed fracture (principal); R47.01 Aphasia; D69.6 Thrombocytopenia, unspecified; G93.89 Other specified disorders of brain; J98.11 Atelectasis; E78.5 Hyperlipidemia, unspecified; R29.6 Repeated falls; R26.81 Unsteadiness on feet; I49.1 Atrial premature depolarization; F17.290 Nicotine dependence, other tobacco product, uncomplicated; F32.9 Major depressive disorder, single episode, unspecified; F79 Unspecified intellectual disabilities; W01.0XXA Fall on same level from slipping, tripping and stumbling without subsequent striking against object, initial encounter; Z23 Encounter for immunization; Y92.009 Unspecified place in unspecified non-institutional (private) residence as the place of occurrence of the external cause; Z86.73 Personal history of transient ischemic attack (TIA), and cerebral infarction without residual deficits; Z90.5 Acquired absence of kidney
CPT/HCPCS: 70450; 71045; 71275; 72125; 73502; 76000; 80048; 80053; 80307; 81001; 82306; 82550; 82552; 83605; 83690; 83880; 84155; 84484; 85025; 85027; 85379; 85610; 85730; 90686; 93005; 93306; 93880; 94667; 94668; 96361; 96374; 96375; C1713; J0690; J1580; J1650; J2270; J2370; J2405; J3010; J3370; J7030; J7050; Q2038; Q9967

== ENCOUNTER → 2017-12-08 | Outpatient (CLI) | payer MEDICARE, OTHER ==
[~2017-12-08] MED LIST changes: -ASPI81TA82 PO; +CALCTAB19 PO; -CARB6.5S5 EACH EAR; +COMMODE 3-IN-11 MIS; +GETGO ROLLING W1 MI1; +HYDR-3583 PO; +NITR100C4 PO; -OMEGCAP21 PO; +TAMS5CAP PO; -THIA100T PO; +VITA500012 PO; -WALKER ROLLING; -WALKER STANDARD; +WALKER WHEELS/F1 MIS; +XARE10TA PO
[2017-12-09 05:56] LABS: PSA, FREE 0.3 ng/mL
== END ==
LOC: CLAB 10:10
PROVIDERS: ATTEND Urology
DX: N40.1 Benign prostatic hyperplasia with lower urinary tract symptoms (principal)
CPT/HCPCS: 36415; 84153; 84154; 88112